=== PATIENT | male | born 1985 | race Caucasian/White ===

== ENCOUNTER 2016-11-19 13:20 | Emergency (ER) | payer OTHER ==
[~2016-11-19] VITALS: Ht 182.9 cm; Wt 89.1 kg
[~2016-11-19 13:20] MED LIST: MELOXICAM15 MG PO; NAPROXEN500 MG PO
[2016-11-19] MEDS ORDERED: ULTRAM50 MG PO (16:36)
[2016-11-19] MEDS ORDERED: NAPROSYN500 MG PO (16:36)
[2016-11-19 16:58] VITALS: BP 132/67
== END 2016-11-19 16:59 | disposition home or self-care (01) ==
LOC: EXP 13:20 → EME 13:20 → EXP 16:59
DX: M79.652 Pain in left thigh (principal); M25.562 Pain in left knee; M25.511 Pain in right shoulder; X50.9XXA Other and unspecified overexertion or strenuous movements or postures, initial encounter; Y93.61 Activity, american tackle football
CPT/HCPCS: 73030; 73564; 76882; 99281; 99283; J1885